=== PATIENT | male | born 1945 | race Caucasian/White ===

== ENCOUNTER 2018-12-23 17:52 | Emergency (ER) | payer MEDICARE ==
[~2018-12-23] VITALS: Ht 177.8 cm; Wt 55.8 kg
[2018-12-23] MEDS ORDERED: NORVASC5 MG PO (18:04)
[2018-12-23] MEDS ORDERED: LISINOPRIL20 MG PO (18:05)
[2018-12-23] MEDS ORDERED: LIPITOR20 MG PO (18:05)
[2018-12-23] MEDS ORDERED: VITAMIN B-121000 MC1 PO (18:06)
[2018-12-23] MEDS ORDERED: VITAMIN D1000 UNI1 PO (18:06)
== END 2018-12-23 20:01 | disposition home or self-care (01) ==
LOC: ED 17:52
DX: S51.812A Laceration without foreign body of left forearm, initial encounter (principal); S51.811A Laceration without foreign body of right forearm, initial encounter; I10 Essential (primary) hypertension; F17.200 Nicotine dependence, unspecified, uncomplicated; Z79.899 Other long term (current) drug therapy; W01.0XXA Fall on same level from slipping, tripping and stumbling without subsequent striking against object, initial encounter
CPT/HCPCS: 99283

== ENCOUNTER 2021-02-24 12:20 | Emergency (ER) | payer MEDICARE ==
[~2021-02-24] VITALS: Ht 177.8 cm; Wt 55.8 kg
[~2021-02-24 12:20] MED LIST: LIPITOR20 MG PO; LISINOPRIL20 MG PO; NORVASC5 MG PO; VITAMIN B-121000 MC1 PO; VITAMIN D1000 UNI1 PO
== END 2021-02-24 15:03 | disposition home or self-care (01) ==
LOC: ED 12:20
DX: Z03.821 Encounter for observation for suspected ingested foreign body ruled out (principal); I10 Essential (primary) hypertension; F17.200 Nicotine dependence, unspecified, uncomplicated; Z79.899 Other long term (current) drug therapy
CPT/HCPCS: 71045; 99283-25

== ENCOUNTER 2022-04-27 14:56 | Emergency (ER) | payer OTHER, MEDICARE ==
[~2022-04-27] VITALS: Ht 177.8 cm; Wt 48.5 kg
[2022-04-27] MEDS ORDERED: AMOX TR-K CLV1 EAC1 PO (19:01)
[2022-04-27] MEDS ORDERED: ZITHROMAX250 MG PO (19:01)
== END 2022-04-27 19:50 | disposition home or self-care (01) ==
LOC: ED 14:56
DX: J10.1 Influenza due to other identified influenza virus with other respiratory manifestations (principal); J18.9 Pneumonia, unspecified organism; E86.0 Dehydration; I10 Essential (primary) hypertension; N40.0 Benign prostatic hyperplasia without lower urinary tract symptoms; F17.200 Nicotine dependence, unspecified, uncomplicated; Z79.899 Other long term (current) drug therapy
CPT/HCPCS: 36415; 71045; 80053; 81003; 85025; 87502; 96361; 96365; 96375; 99284-25; J0456; J0696; J7030; J7060; U0003